=== PATIENT | female | born 1980 | race Caucasian/White ===

== ENCOUNTER 2017-01-21 23:21 | Inpatient (IN) | payer OTHER ==
[~2017-01-21] VITALS: Ht 162.6 cm; Wt 82.1 kg
[2017-01-22] MEDS ORDERED: CEFAZOLIN 2 GM/50 ML (PMX) 50 ML IV SCH
[2017-01-22] MEDS ORDERED: OXYTOCIN 30 UNITS/LR 500 ML IV SCH
[2017-01-22 00:03] VITALS: Ht 162.6 cm; Wt 82.1 kg
[2017-01-22 00:04] VITALS: BP 119/78; PULSE 71; RESP 17
[2017-01-22] MEDS: LACTATED RINGER'S 1,000 ML IV SCH ×4 (00:48→22:29)
[2017-01-22 01:35] LABS: ABNORMAL IP MESSAGE 1; BASOPHILS % 0.1 % (0.0-2.0); EOSINOPHILS # 0.1 10^3/ul (0.0-0.5); EOSINOPHILS % 1.4 % (0.0-7.0); HEMATOCRIT 34.3 % (37.0-47.0); LYMPHOCYTES # 1.9 10^3/ul (0.8-2.9); LYMPHOCYTES % 22.5 % (15.0-51.0); MEAN CORPUSCULAR VOLUME 91.5 fl (82.0-101.0); MEAN PLATELET VOLUME 13.6 fl (7.4-10.4); MONOCYTE # 0.6 10^3/ul (0.3-0.9); MONOCYTES % 6.5 % (0.0-11.0); NEUTROPHILS % 69.3 % (39.0-77.0); PLATELET COUNT 154 10^3/UL (140-415); RED BLOOD COUNT 3.75 10^6/ul (4.20-5.40); RED CELL DISTRIBUTION WIDTH 12.7 % (11.5-14.5); WHITE BLOOD COUNT 8.6 10^3/ul (4.8-10.8)
[2017-01-22 01:51] LABS: INR 0.94; PARTIAL THROMBOPLASTIN TIME 26.8 Sec (25.0-35.0); PROTIME 12.6 Sec (12.2-14.2)
--- NOTE | 2017-01-22 02:05 | TRIAGE ---
OB Triage Datetime Report Generated by CPN: 01/22/2017 02:05 Datetime: 01/22/2017 01:30 Labor Evaluation Frequency: 9-10 Monitor Mode: External Duration (sec)2399: 40-70 Pattern: Normal: <= 5 Contractions in 10 Minutes Contraction Comments: IRREGULAR Heart Rate FHR Baseline Rate: 135 Monitor Mode: External US FHR Baseline Changes: No Baseline Change Variability: Moderate 6-25 bpm Datetime: 01/22/2017 01:00 Pain Assessment Pain Scale: 0 Pain Presence: None/Denies Pain Type: N/A Pain Assessment Comments: PT STILL DENIES PAIN Datetime: 01/22/2017 00:29 Labor Evaluation Frequency: 9-10 Monitor Mode: External Duration (sec)2399: 70-90 Pattern: Normal: <= 5 Contractions in 10 Minutes Heart Rate FHR Baseline Rate: 135 Monitor Mode: External US FHR Baseline Changes: No Baseline Change Variability: Moderate 6-25 bpm Accelerations: 15X15 Datetime: 01/22/2017 00:10 Stage of : Labor Datetime: 01/22/2017 00:00 Time of Arrival: 01/22/2017 00:00 EGA: 35.2 Arrived By: Wheelchair Arrived From: TRIAGE Time Provider Notified: 01/21/2017 23:52 Datetime: 01/21/2017 23:46 Vaginal Exam Dilatation (cms): 0.5 Effacement (%): 50 Station: -4 Exam By: URSULA PIERRE Membrane Status: Ruptured Membranes Rupture Method: Spontaneous Amniotic Fluid Color: Clear Amniotic Fluid Amount: Copious Amniotic Fluid Odor: Normal Vaginal Bleeding: None Cervix, Consistency: Firm Cervix, Position: Posterior Datetime: 01/21/2017 23:42 Membranes Ruptured Date/Time: 01/22/2017 22:30 Presentation 'A': Cephalic Datetime: 01/21/2017 23:35 Stage of : OB Triage Monitor Mode: Palpation Resting Tone [place]: Relaxed Datetime: 01/21/2017 23:32 Monitor Mode: External Monitor Mode: External US Datetime: 01/21/2017 23:24 EGA: 35.2 Datetime: 01/21/2017 23:20 Stage of : OB Triage Assessment Type: Triage Maternal Assessment Level of Consciousness: Fully Conscious Headache: Denies Blurred Vision: No Respiratory Effort: Unlabored; Regular Rhythm; Equal Expansion Nausea/Vomiting: Denies RUQ Epigastric Pain: Denies Facial Edema: None Fall Risk Assessment History of Falling: (0) No Secondary Diagnosis: (0) No Ambulatory Aid: (0) Bedrest/Nurse Assist IV Therapy: (0) No Gait: (0) Normal/Bedrest/Immobile Mental Status: (0) Oriented to Own Ability Fall Score: 0 Fall Risk Score Definition: No Risk: No action required Datetime: 01/21/2017 23:13 Time of Arrival: 01/21/2017 23:13 Arrived By: Wheelchair Arrived From: Home Chief Complaint: SROM Movement: Present Contractions: Denies/Absent Rupture of Membranes: Ruptured Vaginal Bleeding: None Vaginal Discharge: Denies Recent Sexual Intercouse: Denies Abdominal Trauma: Not Applicable Patient Complaints: Other Initial Plan: EFM, ANGEL
[2017-01-22 02:12] LABS: POSITIVE DIFF @See below
[2017-01-22] MEDS ORDERED: FAMOTIDINE 20 MG INJ ONE (09:42)
[2017-01-22] MEDS ORDERED: METOCLOPRAMIDE 10 MG INJ ONE (09:42)
[2017-01-22] MEDS ORDERED: CITRIC ACID/NA CITRATE 30 ML CUP ONE (09:43)
[2017-01-22] MEDS ORDERED: LACTATED RINGER'S 1,000 ML IV ONE (10:19)
[2017-01-22] MEDS ORDERED: CITRIC ACID/NA CITRATE 30 ML CUP PO ONE (10:30)
[2017-01-22] MEDS ORDERED: METOCLOPRAMIDE 10 MG INJ IV ONE (10:30)
[2017-01-22] MEDS ORDERED: FAMOTIDINE 20 MG INJ IV ONE (10:30)
[2017-01-22] MEDS ORDERED: FENTAnyl 50 MCG/ML VIAL ONE (10:37)
[2017-01-22] MEDS ORDERED: morphine SULFATE/PF (10 MG/10 ML) INJ ONE (10:37)
[2017-01-22] MEDS ORDERED: EPHEDrine SULFATE 50 MG/5 ML SYG ONE (10:54)
[2017-01-22] MEDS ORDERED: PHENYLephrine (100 MCG/ML) 5ML SYG ONE (10:54)
[2017-01-22] MEDS ORDERED: ONDANSETRON 4 MG INJ ONE (11:05)
[2017-01-22] MEDS ORDERED: OXYTOCIN 30 UNITS/LR 500 ML IV ONE (11:25)
[2017-01-22] MEDS ORDERED: ONDANSETRON 4 MG INJ IV PRN ×2 (11:30→14:00)
[2017-01-22] MEDS ORDERED: PROCHLORPERAZINE 10 MG INJ IV PRN (11:30)
[2017-01-22] MEDS ORDERED: HYDROmorphONE (0.2 MG/ML) 10ML SYG IV PRN (11:30)
[2017-01-22] MEDS ORDERED: MEPERIDINE 25 MG INJ IV PRN (11:30)
[2017-01-22] MEDS ORDERED: KETOROLAC 30 MG INJ IV PRN ×2 (11:30→14:00)
[2017-01-22] MEDS ORDERED: FENTAnyl 50 MCG/ML VIAL IV PRN (11:30)
[2017-01-22] MEDS ORDERED: DIPHENHYDRAMINE 50 MG INJ IV PRN ×2 (11:30→14:00)
[2017-01-22] MEDS ORDERED: MISOPROSTOL 200 MCG TAB PR PRN ×2 (12:00)
[2017-01-22] MEDS ORDERED: HYDROCODONE/APAP (5/325) TAB PO PRN (12:00)
[2017-01-22] MEDS ORDERED: METHYLERGONOVINE 0.2 MG INJ IM PRN ×2 (12:00)
[2017-01-22] MEDS ORDERED: LANOLIN 7 GM TUBE TOP PRN (12:00)
[2017-01-22] MEDS ORDERED: OXYTOCIN 30 UNITS/LR 500 ML IV PRN ×2 (12:00)
[2017-01-22] MEDS ORDERED: SENNA/DOCUSATE NA (8.6MG/50MG) TAB PO PRN (12:00)
[2017-01-22] MEDS ORDERED: CARBOPROST 250 MCG INJ IM PRN ×2 (12:00)
--- NOTE | 2017-01-22 12:04 | HP ---
Date/Time of Note Date/Time of Note DATE: 01/22/17 TIME: 11:57 OB - History Hx of Present Free Text/Dictation 36 y.o. with an IUP at 35w 3d on admit came in with spontaneous rupture of membranes and has a h/o 2 prior cesareans. Chief Complaint: SROM Estimated Due Date: Feb 23, 2017 : 3 Para: 2 Care: Good Care Ultrasounds: Normal mid trimester US Obstetrical Complications: Gestational Diabetes Medical Complications: None Other Concerns: Previous x 2. AMA. Rh negative. Past Family/Social History * Past Medical, Surgical, Family and Obstetric Histories reviewed from chart. Blood Type: B- Rubella: immune RPR/VDRL: Negative GBS Status: Unknown HBsAG: Negative OB Admission Exam Vital Signs Vital Signs Vital Signs Date Time Temp Pulse Resp B/P Pulse Ox O2 Delivery O2 Flow Rate FiO2 01/22/17 00:04 98.4 71 17 119/78 98 Room Air Physical Exam HEENT: WNL Heart: Rhythm Normal Lungs: Clear Abdomen: WNL Extremities: Edema (1+) Reflexes: Normal Cervical Dilatation: Fingertip Effacement: 50% Station: Ballotable Membranes: Ruptured Amniotic Fluid: Clear Heart Rate: 140's Accelerations: Accelerations Present Decelerations: No Decelerations Varibility: Moderate Contractions on Admission: >10 Minutes Apart Last 72 hourBlood Glucose Bedside Glucose - 72 Hours Test 01/22/17 07:28 Bedside Glucose 122mg/dL (70-220) Last 72 hours Lab Results CBC & BMP 01/22/17 01:00 OB Assessment/Plan Reason for admission: rupture of membranes Other Assessment: Previous x 2. AMA. Rh negative. Plan: Section Other plan: Check BS's once off the IV and on a regular diet. PATT ALDRIDGE MD Jan 22, 2017 12:04
--- NOTE | 2017-01-22 12:14 | OPR ---
Operative Report Planned Procedure Procedure date Jan 22, 2017 Procedure(s) Repeat section. Performed by see signature line Assisting provider: OLI ORTEZ MD Anesthesiologist: OLENA LESLIE MD Pre-procedure diagnosis IUP at 35 weeks 4 days with spontaneous rupture of membranes. Anesthesia Type: spinal Procedure Description Under satisfactory spinal anesthesia, the patient was prepped and draped and placed in a supine position, tilted to the left. Pfannenstiel incision was made , carried through the subcutaneous tissue with removal of the old scar. Bleeders brought under control with electrocautery. Fascia incised to the length of the incision. Rectus muscles from the fascia, divided midline. Peritoneum entered with the surgeon's hand and the incision was stretched open. Lower uterine segment was incised with a knife. Amniotic fluid was noted to be clear. The baby was delivered using gentle fundal pressure and had a nuchal cord. The mouth and nares were bulb suctioned. The baby was brought to the team for immediate attention. The placenta was delivered manually intact. Uterine cavity was cleaned with a dry lap and then the uterus was closed in 2 layers using #1 chromic in a continuous fashion. Peritoneal cavity irrigated with warm saline. The uterus was replaced back into the abdomen. Sponge, needle and instrument count reported to be correct. Abdominal peritoneum closed with 2-0 chromic continuously. Rectus muscle approximated with the same suture. Fascia closed with 0 Vicryl from each lateral edge to midline, the subcutaneous layer was closed with 2-0 chromic and the skin was closed with 3-0 Monocryl in a subcuticular stitch. Steristrips with Mastasol were placed Estimated blood loss 500 mL. Urine was noted to be clear. A pressure dressing was applied over all and the pt was brought to the recovery room in excellent condition. Post-Procedure Post-procedure diagnosis Same. Findings: Viable baby girl weighing 3070 grams or 6# 12 oz, 18.5" long, and with Apgars of 9/9. Estimated blood loss: 250 - 300 ml's (500 ml.) Specimen(s): no Grafts/Implants: no Complication(s): no Pt Condition post procedure: stable Disposition: PACU Physician Certification I, the undersigned physician, hereby certify that I have discussed the procedure described in this consent form with this patient (or the patient's legal customer operations representative), including: * The risk and benefits of the procedure; * Any adverse reactions that may reasonably be expected to occur; * Any alternative efficacious methods of treatment which may be medically viable ; * The potential problems that may occur during recuperation; * Potential for blood transfusion and associated risks/benefits; and * Any research or economic interest I may have regarding this treatment. I further certify that the patient/legally responsible person was encouraged to ask question and that all questions were answered. PATT ALDRIDGE MD Jan 22, 2017 12:14
[2017-01-22] MEDS ORDERED: HYDROmorphONE 0.5 MG/0.5 ML SYG IV PRN ×2 (14:00)
[2017-01-22] MEDS ORDERED: ZOLPIDEM 5 MG TAB PO PRN (14:00)
[2017-01-22] MEDS: IBUPROFEN 800 MG TAB PO SCH ×2 (14:00→22:00)
[2017-01-22] MEDS ORDERED: NALOXONE (0.4 MG/ML) INJ IV PRN (14:00)
[2017-01-22 14:25] VITALS: BP 105/62; PULSE 63; RESP 18
[2017-01-22 16:28] VITALS: BP 102/59; RESP 17
[2017-01-22 20:30] VITALS: BP 109/57; PULSE 69; RESP 18
[2017-01-23 00:10] VITALS: BP 111/55; PULSE 88; RESP 18
[2017-01-23 04:10] VITALS: BP 103/59; PULSE 78; RESP 18
[2017-01-23] MEDS: LACTATED RINGER'S 1,000 ML IV SCH (05:34)
[2017-01-23] MEDS: IBUPROFEN 800 MG TAB PO SCH ×3 (06:00→22:15)
[2017-01-23 08:20] VITALS: BP 98/56; PULSE 82; RESP 18
[2017-01-23 08:21] LABS: ABNORMAL IP MESSAGE 1; BASOPHILS % 0.2 % (0.0-2.0); EOSINOPHILS # 0.1 10^3/ul (0.0-0.5); HEMATOCRIT 31.1 % (37.0-47.0); HEMOGLOBIN 10.3 g/dl (12.0-16.0); LYMPHOCYTES # 1.7 10^3/ul (0.8-2.9); LYMPHOCYTES % 18.3 % (15.0-51.0); MEAN CORPUSCULAR HEMOGLOBIN 30.9 pg (29.0-33.0); MEAN CORPUSCULAR HGB CONC 33.1 g/dl (32.0-37.0); MEAN CORPUSCULAR VOLUME 93.4 fl (82.0-101.0); MEAN PLATELET VOLUME 13.5 fl (7.4-10.4); MONOCYTE # 0.7 10^3/ul (0.3-0.9); MONOCYTES % 7.1 % (0.0-11.0); NEUTROPHIL # 6.8 10^3/ul (1.6-7.5); NEUTROPHILS % 73.2 % (39.0-77.0); PLATELET COUNT 119 10^3/UL (140-415); RED BLOOD COUNT 3.33 10^6/ul (4.20-5.40); WHITE BLOOD COUNT 9.3 10^3/ul (4.8-10.8)
[2017-01-23 08:29] LABS: POSITIVE DIFF @See below
[2017-01-23] MEDS: ACCU-CHEK XX SCH ×3 (13:00→20:50)
[2017-01-23] MEDS: HYDROCODONE/APAP (5/325) TAB PO PRN (13:59)
[2017-01-23 16:32] VITALS: BP 115/75; PULSE 68; RESP 18
[2017-01-23 20:00] VITALS: BP 108/68; PULSE 73; RESP 18
[2017-01-24 04:00] VITALS: BP 105/65; PULSE 73; RESP 18
[2017-01-24] MEDS: IBUPROFEN 800 MG TAB PO SCH ×3 (06:01→22:00)
[2017-01-24] MEDS: ACCU-CHEK XX SCH ×3 (07:30→13:50)
[2017-01-24 08:34] VITALS: BP 114/61; PULSE 72; RESP 18
--- NOTE | 2017-01-24 08:34 | DS ---
Date/Time of Note Date/Time of Note DATE: 01/24/17 TIME: 08:30 Obstetrical Discharge Record Final Diagnosis Final Diagnosis: delivered Other Final Diagnosis she was admitted due to PPROM. s/p repeat c/s. had GDM controlled with Glyburide during . I requested patient to continue checking her BS and notify me if they continue to be elevated and make appt with PCP for DM control. she already had flatus and tolerating diet. ambulating well. took shower. would like to go home in am. good pain control on oral pain meds. Rx for Motrin and [place] given. Section Section: Repeat Complications Gestational Diabetes Rupture of Membranes: Yes Gestational Age at Rupture 35 weeks Condition on Discharge Physical Assessment Voiding: Yes Bowel Movement: Yes Breast: Soft, non-tender, Filling Fundus: Firm Abdomen and Incision: soft, appropriate tenderness, incision is covered by stereostrips and no sign of infection Calf Tenderness: No Patient Condition: Good TIMOTHY MURILLO MD Jan 24, 2017 08:34
[2017-01-24 16:00] VITALS: BP 111/71; PULSE 94; RESP 18
[2017-01-24] MEDS: HYDROCODONE/APAP (5/325) TAB PO PRN (17:31)
[2017-01-24 19:45] VITALS: BP 102/63; PULSE 73; RESP 18
[2017-01-25 04:12] VITALS: BP 113/60; PULSE 77; RESP 18
[2017-01-25] MEDS: IBUPROFEN 800 MG TAB PO SCH ×2 (06:00→13:07)
--- NOTE | 2017-01-25 07:24 | DS ---
Date/Time of Note Date/Time of Note DATE: 01/25/17 TIME: 07:22 Obstetrical Discharge Record Final Diagnosis Final Diagnosis: delivered Other Final Diagnosis she was admitted due to PPROM. s/p repeat c/s. had GDM controlled with Glyburide during . I requested patient to continue checking her BS and notify me if they continue to be elevated and make appt with PCP for DM control. she already had flatus and tolerating diet. ambulating well. took shower. would like to go home in am. good pain control on oral pain meds. Rx for Motrin and [place] given. Section Section: Repeat Complications Gestational Diabetes Rupture of Membranes: Yes Gestational Age at Rupture 35 Condition on Discharge Physical Assessment Voiding: Yes Bowel Movement: Yes Breast: Soft, non-tender, Filling Fundus: Firm Abdomen and Incision: soft, appropriate tenderness incision is clean and dry and intact Calf Tenderness: No Patient Condition: Good TIMOTHY MURILLO MD Jan 25, 2017 07:24
[2017-01-25 08:00] VITALS: BP 109/68; PULSE 81; RESP 18
[2017-01-25] MEDS: ACCU-CHEK XX SCH ×2 (08:27→10:40)
[2017-01-25] MEDS ORDERED: DIPHTH/TET/ACEL PERTUSS (ADULT) 0.5 ML VIAL IM* ONE (09:00)
== END 2017-01-25 13:35 | disposition home or self-care (01) | DRG 766 ==
LOC: OBT 23:21 → L-D 23:23 → OBT 23:55 → L-D 23:55 → PP1 01-22 14:26
PROVIDERS: ADMIT Specialist; ATTEND Specialist
PROC: 10D00Z1 Extraction of Products of Conception, Low, Open Approach (ICD-10-PCS; principal; 2017-01-22 11:00)
PROC: 3E0234Z Introduction of Serum, Toxoid and Vaccine into Muscle, Percutaneous Approach (ICD-10-PCS; 2017-01-23)
DX: O60.14X0 Preterm labor third trimester with preterm delivery third trimester, not applicable or unspecified (principal); O24.425 Gestational diabetes mellitus in childbirth, controlled by oral hypoglycemic drugs; Z37.0 Single live birth; Z3A.35 35 weeks gestation of pregnancy; O34.219 Maternal care for unspecified type scar from previous cesarean delivery; Z29.13 Encounter for prophylactic Rho(D) immune globulin
CPT/HCPCS: 82947; 82962; 85025; 85610; 85730; 86592; 86850; 86870; 86885; 86900; 86901; 87340; 90715; 94760; 99464; G0463; J0690; J1885; J2210; J2274; J2370; J2405; J2590; J2765; J2790; J3010; J7120

== ENCOUNTER 2017-02-25 10:00 | Emergency (ER) | payer OTHER ==
[~2017-02-25] VITALS: Ht 157.5 cm; Wt 74.1 kg
[2017-02-25 10:06] VITALS: Ht 157.5 cm; Wt 74.1 kg
--- NOTE | 2017-02-25 11:05 | ERD ---
ER Documentation Chief Complaint Chief Complaint Patient here for a wound recheck HPI This 28-year-old female presents for recheck on wound. She had some clear yellow fluid from the wound started yesterday. Her was several weeks ago. She denies fevers, vomiting, additional symptoms. ROS All systems reviewed and are negative except as per history of present illness. Medications Home Meds No Active Prescriptions or Reported Meds Allergies Allergies: Coded Allergies: No Known Allergy (Unverified , 11/18/13) Physical Exam Vitals Vital Signs Date Time Temp Pulse Resp B/P Pulse Ox O2 Delivery O2 Flow Rate FiO2 02/25/17 10:06 97.8 59 20 145/74 100 Physical Exam Const: [], Not ill-appearing. Head: Atraumatic Eyes: Normal Conjunctiva ENT: Normal External Ears, Nose and Mouth. Neck: Full range of motion..~ No meningismus. Resp: Clear to auscultation bilaterally Cardio: Regular rate and rhythm, no murmurs Abd: Soft, non tender, non distended. Normal bowel sounds and healing C- section wound. There is a small pinhole from where the fluid came out but no surrounding erythema or active discharge. Skin: No petechiae or rashes Back: No midline or flank tenderness Ext: No cyanosis, or edema Neur: Awake and alert Psych: Normal Mood and Affect Procedures/MDM She appears to have had a small seroma which is not actively draining. There is no evidence of dehiscence or current evidence of wound infection. She will discharged home with instructions for further wound care and return for fevers, redness, new worsening symptoms. There is no signs of deep abdominal tenderness suggestive of deep abscess or significant post operative complications but patient should recheck for new or worsening symptoms as directed. Departure Diagnosis: Primary Impression: Seroma Condition: Stable Patient Instructions: Seroma, Postsurgical Additional Instructions: Recheck for redness, swelling, fevers, new symptoms. Keep wound covered with a Band-Aid. JOSSELIN TOMLINSON MD Feb 25, 2017 11:05
== END 2017-02-25 11:32 | disposition home or self-care (01) ==
LOC: FTE 10:00
DX: O90.0 Disruption of cesarean delivery wound (principal)
CPT/HCPCS: 99283